=== PATIENT | male | born 1965 | race African-American/Black ===

== ENCOUNTER 2020-09-26 10:27 | Inpatient (IN) | payer OTHER ==
[2020-09-26 11:26] VITALS: BMI 25.0
[2020-09-26] MEDS ORDERED: NICOTINE POLACRILEX 2 MG GUM BUC PRN (12:37)
[2020-09-26] MEDS ORDERED: IBUPROFEN 400 MG TABLET (FP) PO PRN (12:37)
[2020-09-26] MEDS ORDERED: METHOCARBAMOL 500 MG TABLET PO PRN (12:37)
[2020-09-26] MEDS ORDERED: ONDANSETRON *ODT* 4 MG TABLET SL PRN (12:37)
[2020-09-26] MEDS ORDERED: MAG HYDROX/AL HYDROX/SIMETH 30 ML UNIT-DOSE CUP PO PRN (12:37)
[2020-09-26] MEDS ORDERED: ACETAMINOPHEN 325 MG TABLET (FP) PO PRN ×2 (12:37)
[2020-09-26] MEDS ORDERED: MAGNESIUM HYDROX 2400MG/30ML ORAL SUSPENSION 30 ML CUP PO PRN (12:37)
[2020-09-26] MEDS ORDERED: MAGNESIUM CITRATE 300 ML BOTTLE PO PRN (12:37)
[2020-09-26] MEDS ORDERED: BISMUTH SUBSALICYLATE 262 MG/15 ML BTL PO PRN (12:37)
[2020-09-26] MEDS ORDERED: MENTHOL/PHENOL 1 EACH UD MM PRN (12:37)
[2020-09-26] MEDS: hydrOXYzine PAMOATE 25 MG CAPSULE (FP) PO SCH ×3 (13:55→22:21)
[2020-09-26] MEDS: LORazepam 1 MG TABLET PO PRN (13:55)
[2020-09-26] MEDS: NICOTINE 21 MG/24 HOURS TOPICAL PATCH TD SCH (13:59)
[2020-09-26 16:15] LABS: CALCIUM 8.8 mg/dL (8.5-10.1); HEMATOCRIT 28.9 % (35.4-49); HEMOGLOBIN 9.2 GM/dL (11.7-16.9); MCH 27.1 pg (25.7-33.7); MCHC 31.8 g/dl (32.0-35.9); MEAN CELL VOLUME 85.4 fl (80-96); MEAN PLT VOLUME 7.3 fl (7.5-11.1); PLATELET COUNT 260 10^3/uL (134-434); RBC 3.38 M/mm3 (4.00-5.60); RDW 18.3 % (11.9-15.9); WHITE BLOOD COUNT 3.5 K/mm3 (4.0-10.0)
[2020-09-26 16:16] LABS: ALBUMIN 3.8 g/dl (3.4-5.0); BLOOD UREA NITROGEN 5.8 mg/dL (7-18)
[2020-09-26 16:18] LABS: CREATININE 0.9 mg/dL (0.55-1.3)
[2020-09-26 16:21] LABS: BILIRUBIN,TOTAL 0.6 mg/dL (0.2-1); TOT PROT 7.6 g/dl (6.4-8.2)
[2020-09-26] MEDS: LORazepam 2 MG TABLET PO SCH ×2 (18:00→22:21)
[2020-09-26 18:12] LABS: HIV INTERPRETATION NEGATIVE (NEGATIVE)
[2020-09-26] MEDS: MELATONIN 5 MG TABLETS PO SCH (22:21)
[2020-09-26] MEDS: THIAMINE HCL 100 MG TABLET (FP) PO SCH (22:21)
[2020-09-27] MEDS: LORazepam 2 MG TABLET PO SCH ×4 (06:54→22:39)
[2020-09-27] MEDS: hydrOXYzine PAMOATE 25 MG CAPSULE (FP) PO SCH ×2 (06:54→10:44)
[2020-09-27] MEDS: LORazepam 1 MG TABLET PO PRN (07:21)
[2020-09-27] MEDS ORDERED: COVID-19 VAC,AD26(JANSSEN)/PF 0.5 ML IM ONE (10:00)
[2020-09-27] MEDS: NICOTINE 21 MG/24 HOURS TOPICAL PATCH TD SCH (10:44)
[2020-09-27] MEDS: PRENATAL VITAMINS W/ FOLIC ACID TABLET (FP) PO SCH (10:44)
[2020-09-27] MEDS ORDERED: hydrOXYzine PAMOATE 25 MG CAPSULE (FP) PO PRN (11:55)
[2020-09-27] MEDS: MELATONIN 5 MG TABLETS PO SCH (22:39)
[2020-09-27] MEDS: THIAMINE HCL 100 MG TABLET (FP) PO SCH (22:39)
[2020-09-28] MEDS: LORazepam 1 MG TABLET PO SCH ×4 (06:18→22:22)
[2020-09-28] MEDS: PRENATAL VITAMINS W/ FOLIC ACID TABLET (FP) PO SCH (10:34)
[2020-09-28] MEDS: NICOTINE 21 MG/24 HOURS TOPICAL PATCH TD SCH (10:34)
[2020-09-28 10:48] LABS: HEMATOCRIT 27.3 % (35.4-49); HEMOGLOBIN 8.6 GM/dL (11.7-16.9); MCHC 31.4 g/dl (32.0-35.9); MEAN CELL VOLUME 85.9 fl (80-96); MEAN PLT VOLUME 7.6 fl (7.5-11.1); PLATELET COUNT 231 10^3/uL (134-434); RBC 3.18 M/mm3 (4.00-5.60); RDW 18.2 % (11.9-15.9); WHITE BLOOD COUNT 5.3 K/mm3 (4.0-10.0)
[2020-09-28 10:50] LABS: ALBUMIN 3.1 g/dl (3.4-5.0); BLOOD UREA NITROGEN 9.3 mg/dL (7-18); CREATININE 0.7 mg/dL (0.55-1.3)
[2020-09-28 10:51] LABS: CALCIUM 8.9 mg/dL (8.5-10.1)
[2020-09-28 10:53] LABS: BILIRUBIN,TOTAL 0.4 mg/dL (0.2-1); TOT PROT 6.3 g/dl (6.4-8.2)
[2020-09-28] MEDS: FERROUS SO4 325 MG TABLET (FP) PO SCH ×2 (13:00→17:24)
[2020-09-28] MEDS: THIAMINE HCL 100 MG TABLET (FP) PO SCH (22:21)
[2020-09-28] MEDS: MELATONIN 5 MG TABLETS PO SCH (22:22)
[2020-09-29] MEDS ORDERED: LORazepam 0.5 MG TABLET PO PRN
[2020-09-29] MEDS: LORazepam 0.5 MG TABLET PO SCH ×2 (06:28→10:01)
[2020-09-29] MEDS: FERROUS SO4 325 MG TABLET (FP) PO SCH (07:04)
[2020-09-29 09:17] VITALS: BP 104/61; PULSE 80; TEMP 97
[2020-09-29] MEDS: NICOTINE 21 MG/24 HOURS TOPICAL PATCH TD SCH (09:18)
[2020-09-29] MEDS: PRENATAL VITAMINS W/ FOLIC ACID TABLET (FP) PO SCH (09:18)
[2020-09-29 10:14] LABS: HEMATOCRIT 30.4 % (35.4-49); HEMOGLOBIN 9.7 GM/dL (11.7-16.9); MCH 27.6 pg (25.7-33.7); MEAN PLT VOLUME 7.7 fl (7.5-11.1); PLATELET COUNT 262 10^3/uL (134-434); RBC 3.53 M/mm3 (4.00-5.60); RDW 18.5 % (11.9-15.9); WHITE BLOOD COUNT 6.1 K/mm3 (4.0-10.0)
[2020-09-30] MEDS ORDERED: LORazepam 0.5 MG TABLET PO ONE (05:00)
== END 2020-09-29 10:19 | disposition other institution (70) | DRG 775 ==
LOC: YASAS 10:27 → Y3N 12:13
PROVIDERS: ADMIT Allergy & Immunology; ATTEND Allergy & Immunology
PROC: HZ2ZZZZ Detoxification Services for Substance Abuse Treatment (ICD-10-PCS; principal; 2020-09-26)
DX: F10.230 Alcohol dependence with withdrawal, uncomplicated (principal); F12.10 Cannabis abuse, uncomplicated; F17.210 Nicotine dependence, cigarettes, uncomplicated; D64.9 Anemia, unspecified; R73.9 Hyperglycemia, unspecified
CPT/HCPCS: 0031A; 36415; 80053; 85027; 86780; 87389; 91303; 93005; 93010; C9803; U0003; U0005

== ENCOUNTER 2020-12-17 10:42 | Inpatient (IN) | payer OTHER ==
[2020-12-17 12:18] VITALS: BMI 26.1
[2020-12-17] MEDS ORDERED: MAGNESIUM CITRATE 300 ML BOTTLE PO PRN (14:26)
[2020-12-17] MEDS ORDERED: NICOTINE 10 MG CARTRIDGE (INHALER) IH PRN (14:26)
[2020-12-17] MEDS ORDERED: NICOTINE POLACRILEX 2 MG GUM BUC PRN (14:26)
[2020-12-17] MEDS ORDERED: IBUPROFEN 400 MG TABLET (FP) PO PRN (14:26)
[2020-12-17] MEDS ORDERED: MAG HYDROX/AL HYDROX/SIMETH 30 ML UNIT-DOSE CUP PO PRN (14:26)
[2020-12-17] MEDS ORDERED: ONDANSETRON *ODT* 4 MG TABLET SL PRN (14:26)
[2020-12-17] MEDS ORDERED: MENTHOL/PHENOL 1 EACH UD MM PRN (14:26)
[2020-12-17] MEDS ORDERED: MAGNESIUM HYDROX 2400MG/30ML ORAL SUSPENSION 30 ML CUP PO PRN (14:26)
[2020-12-17] MEDS ORDERED: ACETAMINOPHEN 325 MG TABLET (FP) PO PRN ×2 (14:26)
[2020-12-17] MEDS ORDERED: BISMUTH SUBSALICYLATE 524 MG/30 ML PO PRN (14:26)
[2020-12-17] MEDS ORDERED: METHOCARBAMOL 500 MG TABLET PO PRN (14:26)
[2020-12-17] MEDS ORDERED: hydrOXYzine PAMOATE 25 MG CAPSULE (FP) PO PRN (15:34)
[2020-12-17] MEDS: diazePAM 5 MG TABLET PO SCH ×2 (17:35→23:32)
[2020-12-17] MEDS ORDERED: hydrOXYzine PAMOATE 25 MG CAPSULE (FP) PO SCH (18:00)
[2020-12-17] MEDS: MELATONIN 5 MG TABLETS PO SCH (22:55)
[2020-12-17] MEDS: THIAMINE HCL 100 MG TABLET (FP) PO SCH (22:56)
[2020-12-17] MEDS: diazePAM 5 MG TABLET PO PRN (23:19)
[2020-12-18] MEDS: diazePAM 5 MG TABLET PO SCH ×4 (05:46→22:09)
[2020-12-18 10:27] LABS: HEMATOCRIT 26.3 % (35.4-49); HEMOGLOBIN 8.5 GM/dL (11.7-16.9); MCHC 32.5 g/dl (32.0-35.9); MEAN CELL VOLUME 76.8 fl (80-96); MEAN PLT VOLUME 6.8 fl (7.5-11.1); PLATELET COUNT 345 10^3/uL (134-434); RBC 3.42 M/mm3 (4.00-5.60); RDW 18.8 % (11.9-15.9); WHITE BLOOD COUNT 3.9 K/mm3 (4.0-10.0)
[2020-12-18 10:32] LABS: CALCIUM 8.9 mg/dL (8.5-10.1)
[2020-12-18 10:33] LABS: ALBUMIN 3.5 g/dl (3.4-5.0); BLOOD UREA NITROGEN 12.1 mg/dL (7-18)
[2020-12-18 10:34] LABS: BILIRUBIN,TOTAL 1.5 mg/dL (0.2-1)
[2020-12-18 10:35] LABS: TOT PROT 6.9 g/dl (6.4-8.2)
[2020-12-18 10:36] LABS: CREATININE 0.9 mg/dL (0.55-1.3)
[2020-12-18] MEDS: PRENATAL VITAMINS W/ FOLIC ACID TABLET (FP) PO SCH (10:46)
[2020-12-18] MEDS: NICOTINE 21 MG/24 HOURS TOPICAL PATCH TD SCH (10:47)
[2020-12-18] MEDS ORDERED: FLU VACC QS2021-22(6MOS UP)/PF 60 MCG/0.5 ML SYRINGE IM ONE (12:00)
[2020-12-18] MEDS ORDERED: ALBUTEROL SO4 HFA INHALER IH PRN (14:15)
[2020-12-18 14:22] LABS: HIV INTERPRETATION NEGATIVE (NEGATIVE)
[2020-12-18] MEDS: MELATONIN 5 MG TABLETS PO SCH (22:09)
[2020-12-18] MEDS: THIAMINE HCL 100 MG TABLET (FP) PO SCH (22:09)
[2020-12-19] MEDS: diazePAM 5 MG TABLET PO SCH ×3 (05:39→22:38)
[2020-12-19] MEDS ORDERED: ALBUTEROL SO4 HFA INHALER IH PRN (10:29)
[2020-12-19] MEDS: NICOTINE 21 MG/24 HOURS TOPICAL PATCH TD SCH (10:37)
[2020-12-19] MEDS: PRENATAL VITAMINS W/ FOLIC ACID TABLET (FP) PO SCH (10:38)
[2020-12-19] MEDS: diazePAM 5 MG TABLET PO PRN (10:38)
[2020-12-19 11:15] LABS: HEMATOCRIT 24.6 % (35.4-49); HEMOGLOBIN 8.1 GM/dL (11.7-16.9); MCH 25.4 pg (25.7-33.7); MCHC 32.7 g/dl (32.0-35.9); MEAN CELL VOLUME 77.6 fl (80-96); MEAN PLT VOLUME 7.1 fl (7.5-11.1); PLATELET COUNT 315 10^3/uL (134-434); RBC 3.17 M/mm3 (4.00-5.60); RDW 18.9 % (11.9-15.9); RETICULOCYTES 2.41 % (0.5-1.5); WHITE BLOOD COUNT 4.6 K/mm3 (4.0-10.0)
[2020-12-19 11:18] LABS: ALBUMIN 3.3 g/dl (3.4-5.0); BLOOD UREA NITROGEN 11.7 mg/dL (7-18); CALCIUM 8.6 mg/dL (8.5-10.1)
[2020-12-19 11:21] LABS: CREATININE 0.8 mg/dL (0.55-1.3)
[2020-12-19 11:22] LABS: BILIRUBIN,TOTAL 0.5 mg/dL (0.2-1)
[2020-12-19 11:23] LABS: TOT PROT 6.6 g/dl (6.4-8.2)
[2020-12-19] MEDS: FERROUS SO4 325 MG TABLET (FP) PO SCH ×2 (13:06→22:38)
[2020-12-19] MEDS: THIAMINE HCL 100 MG TABLET (FP) PO SCH (22:38)
[2020-12-19] MEDS: MELATONIN 5 MG TABLETS PO SCH (22:38)
[2020-12-20] MEDS: diazePAM 5 MG TABLET PO SCH ×2 (05:39→17:52)
[2020-12-20] MEDS: NICOTINE 21 MG/24 HOURS TOPICAL PATCH TD SCH (10:00)
[2020-12-20] MEDS: PRENATAL VITAMINS W/ FOLIC ACID TABLET (FP) PO SCH (10:13)
[2020-12-20] MEDS: FERROUS SO4 325 MG TABLET (FP) PO SCH ×2 (10:13→22:15)
[2020-12-20] MEDS: MELATONIN 5 MG TABLETS PO SCH (22:15)
[2020-12-20] MEDS: THIAMINE HCL 100 MG TABLET (FP) PO SCH (22:15)
[2020-12-21] MEDS ORDERED: diazePAM 5 MG TABLET PO ONE (06:00)
[2020-12-21] MEDS: PRENATAL VITAMINS W/ FOLIC ACID TABLET (FP) PO SCH (10:35)
[2020-12-21] MEDS: FERROUS SO4 325 MG TABLET (FP) PO SCH (10:35)
[2020-12-21] MEDS: NICOTINE 21 MG/24 HOURS TOPICAL PATCH TD SCH (10:36)
[2020-12-21 12:56] VITALS: BP 128/82; PULSE 79; TEMP 97.1
== END 2020-12-21 13:17 | disposition other institution (70) | DRG 775 ==
LOC: YASAS 10:42 → Y3N 15:08
PROVIDERS: ADMIT Allergy & Immunology; ATTEND Allergy & Immunology
PROC: HZ2ZZZZ Detoxification Services for Substance Abuse Treatment (ICD-10-PCS; principal; 2020-12-17)
DX: F10.230 Alcohol dependence with withdrawal, uncomplicated (principal); F12.20 Cannabis dependence, uncomplicated; F17.210 Nicotine dependence, cigarettes, uncomplicated; D64.9 Anemia, unspecified; J45.909 Unspecified asthma, uncomplicated; R73.9 Hyperglycemia, unspecified
CPT/HCPCS: 36415; 80053; 82962; 83036; 83540; 83550; 85027; 85045; 86780; 87389; 90686; C9803; G0008; U0003; U0005

== ENCOUNTER 2020-12-21 12:54 | Inpatient (IN) | payer OTHER ==
[2020-12-21] MEDS ORDERED: P-EPHED 60MG/TRIPROLIDI 2.5MG TABLET PO PRN (13:57)
[2020-12-21] MEDS ORDERED: MAG HYDROX/AL HYDROX/SIMETH 30 ML UNIT-DOSE CUP PO PRN (13:57)
[2020-12-21] MEDS ORDERED: ACETAMINOPHEN 325 MG TABLET (FP) PO PRN (13:57)
[2020-12-21] MEDS ORDERED: MAGNESIUM HYDROX 2400MG/30ML ORAL SUSPENSION 30 ML CUP PO PRN (13:57)
[2020-12-21] MEDS ORDERED: IBUPROFEN 400 MG TABLET (FP) PO PRN (13:57)
[2020-12-21] MEDS ORDERED: LOPERAMIDE HCL 2 MG CAPSULE PO PRN (13:57)
[2020-12-21] MEDS ORDERED: guaiFENesin 200 MG/10 ML 10 ML UNIT-DOSE CUPS PO PRN (13:57)
[2020-12-21] MEDS ORDERED: MENTHOL/PHENOL 1 EACH UD MM PRN (13:57)
[2020-12-21] MEDS ORDERED: MAGNESIUM CITRATE 300 ML BOTTLE PO PRN (13:57)
[2020-12-21] MEDS ORDERED: NICOTINE POLACRILEX 2 MG GUM BUC PRN (13:58)
[2020-12-21] MEDS ORDERED: ALBUTEROL SO4 HFA INHALER IH PRN (13:58)
[2020-12-21] MEDS ORDERED: hydrOXYzine PAMOATE 25 MG CAPSULE (FP) PO SCH (14:00)
[2020-12-21] MEDS: FERROUS SO4 325 MG TABLET (FP) PO SCH (17:43)
[2020-12-21] MEDS: THIAMINE HCL 100 MG TABLET (FP) PO SCH (21:58)
[2020-12-21] MEDS: MELATONIN 5 MG TABLETS PO SCH (21:58)
[2020-12-21] MEDS: hydrOXYzine PAMOATE 25 MG CAPSULE (FP) PO PRN (21:59)
[2020-12-22] MEDS: FERROUS SO4 325 MG TABLET (FP) PO SCH ×2 (07:14→17:38)
[2020-12-22] MEDS: NICOTINE 7 MG/24 HOURS TOPICAL PATCH TD SCH (09:52)
[2020-12-22] MEDS: PRENATAL VITAMINS W/ FOLIC ACID TABLET (FP) PO SCH (09:52)
[2020-12-22] MEDS: hydrOXYzine PAMOATE 25 MG CAPSULE (FP) PO PRN (21:19)
[2020-12-22] MEDS: THIAMINE HCL 100 MG TABLET (FP) PO SCH (21:19)
[2020-12-22] MEDS: MELATONIN 5 MG TABLETS PO SCH (21:20)
[2020-12-23] MEDS: FERROUS SO4 325 MG TABLET (FP) PO SCH ×2 (07:42→17:27)
[2020-12-23] MEDS: NICOTINE 7 MG/24 HOURS TOPICAL PATCH TD SCH (09:52)
[2020-12-23] MEDS: PRENATAL VITAMINS W/ FOLIC ACID TABLET (FP) PO SCH (09:52)
[2020-12-23] MEDS: THIAMINE HCL 100 MG TABLET (FP) PO SCH (21:21)
[2020-12-23] MEDS: hydrOXYzine PAMOATE 25 MG CAPSULE (FP) PO PRN (21:21)
[2020-12-23] MEDS: MELATONIN 5 MG TABLETS PO SCH (21:21)
[2020-12-24] MEDS: FERROUS SO4 325 MG TABLET (FP) PO SCH ×2 (07:01→18:19)
[2020-12-24] MEDS: PRENATAL VITAMINS W/ FOLIC ACID TABLET (FP) PO SCH (09:26)
[2020-12-24] MEDS: NICOTINE 7 MG/24 HOURS TOPICAL PATCH TD SCH (09:27)
[2020-12-24] MEDS: THIAMINE HCL 100 MG TABLET (FP) PO SCH (21:28)
[2020-12-24] MEDS: MELATONIN 5 MG TABLETS PO SCH (21:28)
[2020-12-24] MEDS: hydrOXYzine PAMOATE 25 MG CAPSULE (FP) PO PRN (21:28)
[2020-12-25] MEDS: FERROUS SO4 325 MG TABLET (FP) PO SCH ×2 (07:00→18:08)
[2020-12-25] MEDS: PRENATAL VITAMINS W/ FOLIC ACID TABLET (FP) PO SCH (09:50)
[2020-12-25] MEDS: NICOTINE 7 MG/24 HOURS TOPICAL PATCH TD SCH (09:51)
[2020-12-25] MEDS: NICOTINE 10 MG CARTRIDGE (INHALER) IH PRN (18:10)
[2020-12-25] MEDS: THIAMINE HCL 100 MG TABLET (FP) PO SCH (21:53)
[2020-12-25] MEDS: hydrOXYzine PAMOATE 25 MG CAPSULE (FP) PO PRN (21:53)
[2020-12-25] MEDS: MELATONIN 5 MG TABLETS PO SCH (21:54)
[2020-12-26] MEDS: FERROUS SO4 325 MG TABLET (FP) PO SCH ×2 (07:16→17:29)
[2020-12-26] MEDS: PRENATAL VITAMINS W/ FOLIC ACID TABLET (FP) PO SCH (10:12)
[2020-12-26] MEDS: NICOTINE 7 MG/24 HOURS TOPICAL PATCH TD SCH (10:12)
[2020-12-26] MEDS: MELATONIN 5 MG TABLETS PO SCH (21:46)
[2020-12-26] MEDS: hydrOXYzine PAMOATE 25 MG CAPSULE (FP) PO PRN (21:46)
[2020-12-26] MEDS: THIAMINE HCL 100 MG TABLET (FP) PO SCH (21:46)
[2020-12-26] MEDS: NICOTINE 10 MG CARTRIDGE (INHALER) IH PRN (22:57)
[2020-12-27] MEDS: FERROUS SO4 325 MG TABLET (FP) PO SCH ×2 (06:59→17:56)
[2020-12-27] MEDS: PRENATAL VITAMINS W/ FOLIC ACID TABLET (FP) PO SCH (09:54)
[2020-12-27] MEDS: NICOTINE 7 MG/24 HOURS TOPICAL PATCH TD SCH (09:54)
[2020-12-27] MEDS: NICOTINE 10 MG CARTRIDGE (INHALER) IH PRN (17:59)
[2020-12-27] MEDS: hydrOXYzine PAMOATE 25 MG CAPSULE (FP) PO PRN (21:40)
[2020-12-27] MEDS: THIAMINE HCL 100 MG TABLET (FP) PO SCH (21:40)
[2020-12-27] MEDS: MELATONIN 5 MG TABLETS PO SCH (21:40)
[2020-12-28] MEDS: FERROUS SO4 325 MG TABLET (FP) PO SCH ×2 (07:07→18:02)
[2020-12-28] MEDS: PRENATAL VITAMINS W/ FOLIC ACID TABLET (FP) PO SCH (09:44)
[2020-12-28] MEDS: NICOTINE 7 MG/24 HOURS TOPICAL PATCH TD SCH (09:44)
[2020-12-28] MEDS: NICOTINE 10 MG CARTRIDGE (INHALER) IH PRN (18:03)
[2020-12-28] MEDS: hydrOXYzine PAMOATE 25 MG CAPSULE (FP) PO PRN (21:03)
[2020-12-28] MEDS: MELATONIN 5 MG TABLETS PO SCH (21:03)
[2020-12-28] MEDS: THIAMINE HCL 100 MG TABLET (FP) PO SCH (21:03)
[2020-12-29] MEDS: FERROUS SO4 325 MG TABLET (FP) PO SCH ×2 (07:09→17:30)
[2020-12-29] MEDS: PRENATAL VITAMINS W/ FOLIC ACID TABLET (FP) PO SCH (09:35)
[2020-12-29] MEDS: NICOTINE 10 MG CARTRIDGE (INHALER) IH PRN ×3 (09:36→21:22)
[2020-12-29] MEDS: NICOTINE 7 MG/24 HOURS TOPICAL PATCH TD SCH (09:36)
[2020-12-29] MEDS: THIAMINE HCL 100 MG TABLET (FP) PO SCH (21:22)
[2020-12-29] MEDS: hydrOXYzine PAMOATE 25 MG CAPSULE (FP) PO PRN (21:22)
[2020-12-29] MEDS: MELATONIN 5 MG TABLETS PO SCH (21:22)
[2020-12-30] MEDS: NICOTINE 10 MG CARTRIDGE (INHALER) IH PRN ×4 (06:30→19:24)
[2020-12-30] MEDS: FERROUS SO4 325 MG TABLET (FP) PO SCH ×2 (07:02→17:35)
[2020-12-30] MEDS: PRENATAL VITAMINS W/ FOLIC ACID TABLET (FP) PO SCH (09:47)
[2020-12-30] MEDS: NICOTINE 7 MG/24 HOURS TOPICAL PATCH TD SCH (09:47)
[2020-12-30] MEDS: hydrOXYzine PAMOATE 25 MG CAPSULE (FP) PO PRN (22:11)
[2020-12-30] MEDS: THIAMINE HCL 100 MG TABLET (FP) PO SCH (22:11)
[2020-12-30] MEDS: MELATONIN 5 MG TABLETS PO SCH (22:11)
[2020-12-31] MEDS: NICOTINE 10 MG CARTRIDGE (INHALER) IH PRN ×4 (06:58→19:58)
[2020-12-31] MEDS: FERROUS SO4 325 MG TABLET (FP) PO SCH ×2 (07:39→17:21)
[2020-12-31] MEDS: NICOTINE 7 MG/24 HOURS TOPICAL PATCH TD SCH (09:45)
[2020-12-31] MEDS: PRENATAL VITAMINS W/ FOLIC ACID TABLET (FP) PO SCH (09:45)
[2020-12-31] MEDS: THIAMINE HCL 100 MG TABLET (FP) PO SCH (22:48)
[2020-12-31] MEDS: MELATONIN 5 MG TABLETS PO SCH (22:48)
[2021-01-01] MEDS: NICOTINE 10 MG CARTRIDGE (INHALER) IH PRN ×3 (06:43→17:47)
[2021-01-01] MEDS: FERROUS SO4 325 MG TABLET (FP) PO SCH ×2 (07:22→17:46)
[2021-01-01] MEDS: PRENATAL VITAMINS W/ FOLIC ACID TABLET (FP) PO SCH (09:53)
[2021-01-01] MEDS: NICOTINE 7 MG/24 HOURS TOPICAL PATCH TD SCH (09:54)
[2021-01-01] MEDS: THIAMINE HCL 100 MG TABLET (FP) PO SCH (21:08)
[2021-01-01] MEDS: MELATONIN 5 MG TABLETS PO SCH (21:08)
[2021-01-02] MEDS: NICOTINE 10 MG CARTRIDGE (INHALER) IH PRN ×3 (06:35→17:56)
[2021-01-02] MEDS: FERROUS SO4 325 MG TABLET (FP) PO SCH ×2 (10:06→17:35)
[2021-01-02] MEDS: PRENATAL VITAMINS W/ FOLIC ACID TABLET (FP) PO SCH (10:06)
[2021-01-02 10:07] LABS: BASO % 0.9 % (0-2.0); EOS % 1.2 % (0-4.5); HEMATOCRIT 29.8 % (35.4-49); HEMOGLOBIN 9.6 GM/dL (11.7-16.9); MCH 25.5 pg (25.7-33.7); MCHC 32.1 g/dl (32.0-35.9); MEAN CELL VOLUME 79.5 fl (80-96); MEAN PLT VOLUME 7.5 fl (7.5-11.1); MONO % 13.4 % (3.8-10.2); NEUT % 53.5 % (42.8-82.8); PLATELET COUNT 344 10^3/uL (134-434); RBC 3.75 M/mm3 (4.00-5.60); WHITE BLOOD COUNT 4.5 K/mm3 (4.0-10.0)
[2021-01-02] MEDS: NICOTINE 7 MG/24 HOURS TOPICAL PATCH TD SCH (10:07)
[2021-01-02] MEDS: MELATONIN 5 MG TABLETS PO SCH (21:26)
[2021-01-02] MEDS: THIAMINE HCL 100 MG TABLET (FP) PO SCH (21:26)
[2021-01-02] MEDS: hydrOXYzine PAMOATE 25 MG CAPSULE (FP) PO PRN (22:07)
[2021-01-03] MEDS: NICOTINE 10 MG CARTRIDGE (INHALER) IH PRN ×3 (06:40→16:03)
[2021-01-03] MEDS: FERROUS SO4 325 MG TABLET (FP) PO SCH ×2 (07:31→17:46)
[2021-01-03] MEDS: PRENATAL VITAMINS W/ FOLIC ACID TABLET (FP) PO SCH (09:41)
[2021-01-03] MEDS: NICOTINE 7 MG/24 HOURS TOPICAL PATCH TD SCH (09:41)
[2021-01-03] MEDS: THIAMINE HCL 100 MG TABLET (FP) PO SCH (21:16)
[2021-01-03] MEDS: MELATONIN 5 MG TABLETS PO SCH (21:16)
[2021-01-04] MEDS: NICOTINE 10 MG CARTRIDGE (INHALER) IH PRN ×2 (06:30→14:22)
[2021-01-04] MEDS: FERROUS SO4 325 MG TABLET (FP) PO SCH ×2 (07:10→18:08)
[2021-01-04] MEDS: NICOTINE 7 MG/24 HOURS TOPICAL PATCH TD SCH (09:45)
[2021-01-04] MEDS: PRENATAL VITAMINS W/ FOLIC ACID TABLET (FP) PO SCH (09:45)
[2021-01-04] MEDS: MELATONIN 5 MG TABLETS PO SCH (21:39)
[2021-01-04] MEDS: THIAMINE HCL 100 MG TABLET (FP) PO SCH (21:39)
[2021-01-05] MEDS: NICOTINE 10 MG CARTRIDGE (INHALER) IH PRN ×3 (06:30→21:27)
[2021-01-05] MEDS: FERROUS SO4 325 MG TABLET (FP) PO SCH ×2 (07:16→17:24)
[2021-01-05] MEDS: PRENATAL VITAMINS W/ FOLIC ACID TABLET (FP) PO SCH (09:39)
[2021-01-05] MEDS: NICOTINE 7 MG/24 HOURS TOPICAL PATCH TD SCH (09:40)
[2021-01-05] MEDS: LISINOPRIL 5 MG TABLET PO SCH (09:40)
[2021-01-05] MEDS: MELATONIN 5 MG TABLETS PO SCH (21:26)
[2021-01-05] MEDS: THIAMINE HCL 100 MG TABLET (FP) PO SCH (21:26)
[2021-01-05] MEDS: hydrOXYzine PAMOATE 25 MG CAPSULE (FP) PO PRN (21:27)
[2021-01-05] MEDS ORDERED: PT OWN MED DRAWER 7, Y5N ONE (23:55)
[2021-01-06] MEDS: FERROUS SO4 325 MG TABLET (FP) PO SCH ×2 (07:41→17:39)
[2021-01-06] MEDS: PRENATAL VITAMINS W/ FOLIC ACID TABLET (FP) PO SCH (09:17)
[2021-01-06] MEDS: LISINOPRIL 5 MG TABLET PO SCH (09:18)
[2021-01-06] MEDS: NICOTINE 7 MG/24 HOURS TOPICAL PATCH TD SCH (09:18)
[2021-01-06] MEDS: NICOTINE 10 MG CARTRIDGE (INHALER) IH PRN ×2 (15:40→21:33)
[2021-01-06] MEDS: THIAMINE HCL 100 MG TABLET (FP) PO SCH (21:32)
[2021-01-06] MEDS: MELATONIN 5 MG TABLETS PO SCH (21:32)
[2021-01-07] MEDS: FERROUS SO4 325 MG TABLET (FP) PO SCH ×2 (07:01→17:19)
[2021-01-07] MEDS: NICOTINE 10 MG CARTRIDGE (INHALER) IH PRN ×3 (08:35→21:16)
[2021-01-07] MEDS: PRENATAL VITAMINS W/ FOLIC ACID TABLET (FP) PO SCH (09:40)
[2021-01-07] MEDS: LISINOPRIL 5 MG TABLET PO SCH (09:40)
[2021-01-07] MEDS: NICOTINE 7 MG/24 HOURS TOPICAL PATCH TD SCH (09:41)
[2021-01-07] MEDS: THIAMINE HCL 100 MG TABLET (FP) PO SCH (21:15)
[2021-01-07] MEDS: MELATONIN 5 MG TABLETS PO SCH (21:15)
[2021-01-08] MEDS: FERROUS SO4 325 MG TABLET (FP) PO SCH ×2 (07:26→17:35)
[2021-01-08] MEDS: NICOTINE 7 MG/24 HOURS TOPICAL PATCH TD SCH (09:46)
[2021-01-08] MEDS: PRENATAL VITAMINS W/ FOLIC ACID TABLET (FP) PO SCH (09:46)
[2021-01-08] MEDS: LISINOPRIL 5 MG TABLET PO SCH (09:46)
[2021-01-08] MEDS: NICOTINE 10 MG CARTRIDGE (INHALER) IH PRN ×2 (09:47→21:23)
[2021-01-08] MEDS: MELATONIN 5 MG TABLETS PO SCH (21:21)
[2021-01-08] MEDS: THIAMINE HCL 100 MG TABLET (FP) PO SCH (21:21)
[2021-01-09] MEDS: NICOTINE 10 MG CARTRIDGE (INHALER) IH PRN ×3 (06:39→18:16)
[2021-01-09] MEDS: FERROUS SO4 325 MG TABLET (FP) PO SCH ×2 (07:16→18:15)
[2021-01-09] MEDS: NICOTINE 7 MG/24 HOURS TOPICAL PATCH TD SCH (10:01)
[2021-01-09] MEDS: PRENATAL VITAMINS W/ FOLIC ACID TABLET (FP) PO SCH (10:01)
[2021-01-09] MEDS: NALTREXONE HCL 50 MG TABLET PO SCH (10:02)
[2021-01-09] MEDS: LISINOPRIL 5 MG TABLET PO SCH (10:02)
[2021-01-09] MEDS: THIAMINE HCL 100 MG TABLET (FP) PO SCH (21:30)
[2021-01-09] MEDS: MELATONIN 5 MG TABLETS PO SCH (21:30)
[2021-01-10 06:49] VITALS: TEMP 97.3
[2021-01-10] MEDS: FERROUS SO4 325 MG TABLET (FP) PO SCH ×2 (07:41→17:44)
[2021-01-10] MEDS: PRENATAL VITAMINS W/ FOLIC ACID TABLET (FP) PO SCH (09:38)
[2021-01-10] MEDS: NALTREXONE HCL 50 MG TABLET PO SCH (09:38)
[2021-01-10] MEDS: NICOTINE 7 MG/24 HOURS TOPICAL PATCH TD SCH (09:39)
[2021-01-10] MEDS: LISINOPRIL 5 MG TABLET PO SCH (09:39)
[2021-01-10] MEDS: NICOTINE 10 MG CARTRIDGE (INHALER) IH PRN ×4 (09:40→21:38)
[2021-01-10] MEDS: hydrOXYzine PAMOATE 25 MG CAPSULE (FP) PO PRN (21:36)
[2021-01-10] MEDS: MELATONIN 5 MG TABLETS PO SCH (21:36)
[2021-01-10] MEDS: THIAMINE HCL 100 MG TABLET (FP) PO SCH (21:36)
[2021-01-11 06:42] VITALS: BP 132/78; PULSE 65
[2021-01-11] MEDS: FERROUS SO4 325 MG TABLET (FP) PO SCH (07:01)
[2021-01-11] MEDS: PRENATAL VITAMINS W/ FOLIC ACID TABLET (FP) PO SCH (09:07)
[2021-01-11] MEDS: NALTREXONE HCL 50 MG TABLET PO SCH (09:07)
[2021-01-11] MEDS: NICOTINE 7 MG/24 HOURS TOPICAL PATCH TD SCH (09:07)
[2021-01-11] MEDS: NICOTINE 10 MG CARTRIDGE (INHALER) IH PRN (09:07)
[2021-01-11] MEDS: LISINOPRIL 5 MG TABLET PO SCH (09:07)
== END 2021-01-11 09:31 | disposition home or self-care (01) | DRG 772 ==
LOC: YASAS 12:54 → Y3E 12:55
PROVIDERS: ADMIT Allergy & Immunology; ATTEND Allergy & Immunology
PROC: HZ42ZZZ Group Counseling for Substance Abuse Treatment, Cognitive-Behavioral (ICD-10-PCS; principal; 2020-12-21)
DX: F10.20 Alcohol dependence, uncomplicated (principal); D64.9 Anemia, unspecified
CPT/HCPCS: 36415; 85025